=== PATIENT | male | born 1960 | race Caucasian/White ===

== ENCOUNTER 2017-12-23 11:29 | Emergency (ER) | payer BC, OTHER ==
[2017-12-23 12:16] VITALS: BP 109/73
--- NOTE | 2017-12-23 12:55 | UC ---
Lower Extremity/Ankle HPI - HPI Summary HPI Summary: Patient states that about 3 weeks ago he stepped off a pallet and hurt his ankle. He notes that it continued to be sore; however, he ran after his dog and noted to pain to be suddenly worse with a little more swelling so he figured he should get it checked out. He denies any associate numbness or tingling to the foot he denies any other injuries offers no other complaints. - History of Current Complaint Chief Complaint: UCLowerExtremity Stated Complaint: LFT ANKLE PAIN Time Seen by Provider: 12/23/17 12:44 Hx Obtained From: Patient Onset/Duration: Sudden Onset Pain Intensity: 4 Aggravating Factor(s): Ambulation Alleviating Factor(s): Rest Able to Bear Weight: Yes - Allergies/Home Medications Allergies/Adverse Reactions: Allergies Allergy/AdvReac Type Severity Reaction Status Date / Time No Known Allergies Allergy Verified 12/23/17 12:09 PMH/Surg Hx/FS Hx/Imm Hx Previously Healthy: Yes - Surgical History Surgical History: Yes Surgery Procedure, Year, and Place: RIGHT WRIST REPAIR. ALL TEETH EXTRACTED ( SURGICALLY DONE). HERNIA REPAIR - Social History Occupation: Employed Full-time Lives: With Family Alcohol Use: None Alcohol Amount: 6 PACK PER DAY Substance Use Type: None Smoking Status (MU): Heavy Every Day Tobacco Smoker Type: Cigarettes Amount Used/How Often: 1 PPD Length of Time of Smoking/Using Tobacco: 30 YEARS Have You Smoked in the Last Year: Yes - Immunization History Vaccination Up to Date: Yes Review of Systems Constitutional: Negative Skin: Negative Eyes: Negative ENT: Negative Respiratory: Negative Cardiovascular: Negative Gastrointestinal: Negative Genitourinary: Negative Motor: Negative Neurovascular: Negative Musculoskeletal: Other: - pain to back of L ankle Neurological: Negative Psychological: Negative Is Patient Immunocompromised?: No All Other Systems Reviewed And Are Negative: Yes Physical Exam Triage Information Reviewed: Yes Appearance: Well-Appearing Vital Signs: Initial Vital Signs Temp 99 F 12/23/17 12:09 Pulse 68 12/23/17 12:09 Resp 16 12/23/17 12:09 BP 109/73 12/23/17 12:09 Pulse Ox 96 12/23/17 12:09 Eyes: Positive: Conjunctiva Clear ENT: Positive: Normal ENT inspection Neck: Positive: Supple, Nontender Respiratory: Positive: Lungs clear, Normal breath sounds Cardiovascular: Positive: RRR, No Murmur Abdomen Description: Positive: Nontender, No Organomegaly, Soft Bowel Sounds: Positive: Present Musculoskeletal: Positive: Other: - Left lower extremity exam: Hip knee and foot are atraumatic. The distal Achilles tendon is mildly swollen and exquisitely tender. The ankle itself is nontender. Patient is able to plantar and dorsiflex his left foot. Left foot has gross sensory vascular and motor function. Neurological: Positive: Alert Psychological: Positive: Age Appropriate Behavior Skin Exam: Normal Procedures - Splinting Left Lower Extremity Location: LLE. posterior splint Hand-Made Type: fiberglass Splint: posterior non walking Pre-Proc Neuro Vasc Exam: normal Post-Proc Neuro Vasc Exam: normal Lower Extremity Course/Dx - Course Course Of Treatment: No bony deformity or tenderness identified. Exam is consistent with partial tear of the left Achilles tendon. We'll place a posterior splint, crutch use, nonweightbearing and orthopedic follow-up. - Differential Dx/Diagnosis Provider Diagnoses: Partial tear left achilles tendon Discharge - Sign-Out/Discharge Documenting (check all that apply): Discharge/Admit/Transfer - Discharge Plan Condition: Stable Disposition: HOME Patient Education Materials: Achilles Tendon Rupture (ED), Splint Care (ED) Forms: *Work Release Referrals: Lalo Mcgee PA [Primary Care Provider] - If Needed Cassidy Barnard MD [Medical Doctor] - If Needed Additional Instructions: SPLINT, CRUTCHES AND NO WEIGHT ON LEG UNTIL CLEARED. - Billing Disposition and Condition Condition: STABLE Disposition: Home
== END 2017-12-23 13:12 | disposition home or self-care (01) ==
LOC: UCCORT 11:29
DX: S86.012A Strain of left Achilles tendon, initial encounter (principal); X50.0XXA Overexertion from strenuous movement or load, initial encounter; Y93.89 Activity, other specified; Y92.9 Unspecified place or not applicable; F17.210 Nicotine dependence, cigarettes, uncomplicated
CPT/HCPCS: 99202; G0463